=== PATIENT | female | born 1995 | race Caucasian/White ===

== ENCOUNTER 2016-12-08 05:41 | Emergency (ER) | payer BC ==
[~2016-12-08] VITALS: Ht 147.3 cm; Wt 42.1 kg
[2016-12-08 08:51] VITALS: BP 117/74
== END 2016-12-08 08:52 | disposition home or self-care (01) ==
LOC: EME 05:41
DX: J02.0 Streptococcal pharyngitis (principal)
CPT/HCPCS: 70360; 99281; 99283; J0295; J1100; J1885; J7030; J7050